=== PATIENT | female | born 1970 | race Two or more races ===

== ENCOUNTER 2024-02-05 12:32 | Emergency (ER) | payer MEDICAID, SELFPAY ==
[2024-02-05 13:00] VITALS: BP 167/97; PULSE 80; RESP 18; TEMP 36.8; O2SAT 96; BMI 30.4
--- NOTE | 2024-02-05 13:07 | PD.EDRME ---
Rapid Medical Screening Exam RME Arrival date/time: 02/05/24 12:32 53-year-old female presents emergency department today requesting social work therapist evaluation Chief Complaint: Psychiatric Symptoms Vital signs: Vital Signs Temperature 98.3 F 02/05/24 13:00 Pulse Rate 80 02/05/24 13:00 Respiratory Rate 18 02/05/24 13:00 Blood Pressure 167/97 H 02/05/24 13:00 Pulse Oximetry (%) 96 02/05/24 13:00 Oxygen Delivery Method Room Air 02/05/24 13:00
[2024-02-05 13:34] LABS: Basophils # (Auto) 0.1 Thou/mm3 (0.0-0.2); Basophils % (Auto) 1 % (0-2.5); Eosinophils % (Auto) 0 % (0-10); Hematocrit 44.7 % (36.0-46.0); Hemoglobin 15.1 g/dL (12.0-16.0); Immature Granulocytes % (Auto) 0 % (0-0); Immature Granulocytes Auto 0.02 Thou/mm3 (0.00-0.00); Lymphocytes # (Auto) 0.7 Thou/mm3 (1.0-4.8); Lymphocytes % (Auto) 8 % (10-50); Mean Corpuscular HGB Conc 33.8 g/dl (31.0-37.0); Mean Corpuscular Hemoglobin 30.4 pg (25.0-35.0); Mean Corpuscular Volume 90 fL (80-100); Monocytes # (Auto) 0.4 Thou/mm3 (0.0-0.8); Monocytes % (Auto) 4 % (0-12); Neutrophils # (Auto) 7.6 Thou/mm3 (1.8-7.7); Neutrophils % (Auto) 87 % (37-80); Nucleated Red Blood Cell % 0 /100 WBC (0); Platelet Count 245 Thou/mm3 (140-440); RDW Standard Deviation 43.8 fL (36.4-46.3); Red Blood Count 4.97 Miln/mm3 (4.00-5.20); White Blood Count 8.8 Thou/mm3 (3.6-11.0)
[2024-02-05 13:35] LABS: HCG Qualitative,Urine Negative
[2024-02-05 13:45] LABS: Alcohol, Urine Negative (Negative); Amphetamine/Methamp Scrn,U Negative (Negative); Barbiturate Screen,Urine Negative (Negative); Benzodiazepines Screen,Urine Negative (Negative); Benzoylecgonine Screen, Ur Negative (Negative); Fentanyl Screen,Urine Negative (Negative); Opiate Screen,Urine Negative (Negative); THC Screen,Urine Positive (Negative)
[2024-02-05 13:52] LABS: Alanine Aminotransferase 15 U/L (10-49); Albumin, Serum 5.3 gm/dL (3.5-5.0); Alkaline Phosphatase 78 U/L (46-116); Anion Gap 8 (7-16); Aspartate Amino Transferase 24 U/L (0-34); BUN/Creatinine Ratio 11 Ratio (12-20); Blood Urea Nitrogen 8 mg/dL (9-23); Calcium 9.9 mg/dL (8.3-10.6); Calcium (Corrected) 9.9 mg/dL (8.5-10.1); Carbon Dioxide 28.5 mMol/L (20.0-31.0); Chloride 99 mMol/L (98-107); Creatinine (Component) 0.7 mg/dL (0.6-1.3); Estimated Creatinine Clearance 81.6 mL/min (>60); Glucose 128 mg/dL (74-106); Osmolality,Calculated 270 (275-295); Potassium 3.9 mMol/L (3.4-5.1); Sodium 135 mMol/L (136-145); eGFR > 60 See Note
[2024-02-05 13:53] LABS: Albumin/Globulin Ratio 1.9 (1.2-2.2); Bilirubin,Total 0.4 mg/dL (0.3-1.2); Globulin 2.8 gm/dL (2.3-3.5); Total Protein 8.1 gm/dL (5.7-8.2)
--- NOTE | 2024-02-05 15:32 | PC.NURSE ---
Patient speaking with conference services coordinator at this time
[2024-02-05 16:12] VITALS: BP 143/95; PULSE 76; RESP 17; TEMP 36.8; O2SAT 97
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
--- NOTE | 2024-02-05 17:30 | PC.NURSE ---
dinner tray provided.
--- NOTE | 2024-02-05 17:43 | PC.CC ---
[facility] patient, Dr. Astudillo, [address]. BONNYWPadmini arranging transportation. Patient was made aware of acceptance information. YAHIR Oliva, Charge Katrina, Dr. Jasmine made aware of acceptance information and discharge plan.
--- NOTE | 2024-02-05 17:55 | PC.NURSE ---
Pt accepted to [facility], Nurse to Nurse report done.
[2024-02-05 18:14] VITALS: BP 160/89; PULSE 67; RESP 17; TEMP 36.7; O2SAT 99
== END 2024-02-05 19:00 ==
PROVIDERS: Nurse Practitioner Primary Care; Emergency Provider Emergency Medicine; PCP Family Medicine
DX: Z00.8 Encounter for other general examination (principal); F23 Brief psychotic disorder; Z75.1 Person awaiting admission to adequate facility elsewhere
CPT/HCPCS: 36415; 80053; 80307; 80320; 81025; 85025; 90839; 96127; 99285; G0480

== ENCOUNTER 2024-04-08 10:59 | Emergency (ER) | payer MEDICAID, SELFPAY ==
[2024-04-08 11:00] VITALS: BMI 29.8
[2024-04-08 12:10] VITALS: BP 153/99; PULSE 68; RESP 19; TEMP 36.8; O2SAT 99
--- NOTE | 2024-04-08 12:44 | EDNOTE_ITS ---
<Statement entered by Penelope Patel MD - 04/12/24 07:24> As co-signing physician, I was present and available for consult prn. I concur with the plan and care as documented by the midlevel provider. ED Anxiety RME/HPI General Chief Complaint: Anxiety Stated Complaint: Medication refill Time Seen by Provider: 04/08/24 11:32 Source: patient Arrival date/time: 04/08/24 10:59 This is a 53-year-old female presents to the emergency department and request for a medication refill. Patient reports that 2 months ago she was admitted to [facility] where she was given Abilify IM injection which is due every 2 months. She reports she went to her PCP for medication refill because she is due for medication and they were unable to give her prescription so they sent her here for the medication. Patient denies any suicidal homicidal anxiety or any symptoms. Mode of arrival: ambulatory Related Data Home Medications ?Medication ?Instructions ?Recorded ?Confirmed No Known Home Medications 01/25/1801/01 sertraline 25 mg tablet (Zoloft) 25 mg PO QDAY 8 01/25/18 Allergies Allergy/AdvReac Type Severity Reaction Status Date / Time amoxicillin Allergy Severe Rash Verified 04/08/24 11:00 Review of Systems Review of Systems Systems Reviewed: All systems reviewed, normal except as documented Narrative Review of Systems: Gen: No fever, no chills, no weight loss EYES: No discharge, no visual changes, no pain HEENT: No ear pain, no congestion, no sore throat PULM: No shortness of breath, no cough, no congestion CV: No chest pain, no dyspnea on exertion, no palpitations GI: No nausea, no vomiting, no diarrhea, no pain, no constipation : No frequency, no urgency, no dysuria Musc/skel: No joint pain, no back pain Skin: No rash Psyc: No hallucinations, no depression Heme/Lymph: No easy bleeding or bruising tendencies Neuro: No weakness, no headache ED Exam Narrative Physical exam: General: Sittiing in Exam table in no acute distress, answering questions appropriately HENT: normocephalic, atraumatic, EOMI, PERRLA, moist mucous membranes Chest: chest wall is nontender Cardiac: regular rate and rhythm, normal S1 and S2, no murmurs, rubs, or gallops, capillary refill ?2 seconds Pulmonary: clear to auscultation bilaterally, no wheezing, crackles, or rhonchi Abdominal: active bowel sounds, soft, nontender, nondistended Neuro: A&OX3, CN II-XII intact, sensation grossly intact bilaterally in UE and LE. Skin: no rashes, no ecchymosis Ext: no lower extremity edema Course Quality Measures none Vital Signs Vital signs: Vital Signs Temperature 98.3 F 04/08/24 12:10 Pulse Rate 68 04/08/24 12:10 Respiratory Rate 19 04/08/24 12:10 Blood Pressure 153/99 H 04/08/24 12:10 Pulse Oximetry (%) 99 04/08/24 12:10 Oxygen Delivery Method Room Air 04/08/24 12:10 Anxiety MDM Narrative MDM Narrative: 53-year-old female evaluated in the emergency department requesting a refill on medication. Patient is requesting her Abilify IM injection which is due every 2 months. I did advise patient we do not have that medication on in our pharmacy or formulary, will not be able to give the patient here shot. I did advise the patient that her PCP can most likely send a prescription to her pharmacy for refill. Patient reports she will call her doctor to request that. Patient data External records reviewed:: [facility] previous records Clinical information provided by:: patient Social determinants that could affect healthcare access:: none Patient has the following chronic illnesses:: Anxiety, mood disorder How is presenting disease/condition affected by chronic disease/condition?: exacerbated by Evaluation data The following diagnostics were reviewed and interpreted by me:: other (specify) Lab and/or radiology exams considered but not ordered:: Not applicable Interpretation Summary: Not applicable Medications / Prescriptions Medications or Prescriptions considered but not ordered:: Considered Rx medication however the patient will see her PCP for Rx Medication administrations:: Not administered Consultations Consultation(s) initiated? (list below): No Diagnosis Differential diagnosis anxiety: hyperventilation, panic disorder, acute anxiety and other Most likely diagnosis given after review of the tests above:: Medication refill Admission Indicated Admission indicated?: not indicated Admission Request Was there a request for admission?: No Disposition Plan Disposition Plan: Discharge Discharge Attestation Discharge Attestation: The patient and all family members were given an opportunity to ask questions and understood the discharge instructions. Discharge instructions specifically effects, indications for sooner follow up or return to the emergency department, and the expected course of current diagnosis. Patient condition: Stable Discharge Plan Plan Patient Disposition: HOME (Self Care) Patient condition on transfer: Stable Prescriptions/Referrals Prescriptions/Med Rec: No Action sertraline [Zoloft] 25 mg Tablet 25 mg PO QDAY No Known Home Medications Problem List Clinical Impression: Encounter for medication refill Patient/Caregiver Discharge Instructions Discharge Activity: activity as tolerated Additional Instructions: - Unfortunately we do not have Abilify IM every 2 weeks in our pharmacy formulary. it Is very important that you follow-up with your primary doctor and have this medication sent to your near pharmacist to be ordered outpatient. As discussed please return to the emergency department if you have any worsening symptoms or change in condition. Print Language: [place] Stand Alone Forms: Prerna Award Info., Patient Portal Info Letter RAUDEL/SHERMAN Supervising Physician RAUDEL/SHERMAN Supervising Physician: Dr. Krueger
== END 2024-04-08 12:55 | disposition home or self-care (01) ==
LOC: SERX 13:00
PROVIDERS: Emergency Provider Emergency Medicine; PCP Family Medicine
DX: Z76.0 Encounter for issue of repeat prescription (principal); F41.9 Anxiety disorder, unspecified; F39 Unspecified mood [affective] disorder
CPT/HCPCS: 99281